=== PATIENT | female | born 1985 | race Hispanic/Latino ===

== ENCOUNTER 2020-04-16 03:32 | Emergency (ER) | payer OTHER ==
[2020-04-16 03:42] VITALS: BP 183/119
--- NOTE | 2020-04-16 04:18 | Emergency Department Report ---
ED ENT HPI - General Chief complaint: Dental/Oral Stated complaint: TOOTHACHE/FACIAL NUMBNESS Time Seen by Provider: 04/16/20 04:03 Source: patient Mode of arrival: Ambulatory Limitations: No Limitations - History of Present Illness MD complaint: tooth pain -: Gradual Location: tooth # Severity: mild, moderate Quality: dull Consistency: constant Improves with: none Worsens with: none Context- Dental: history of dental caries, poor dental care Associated Symptoms: toothache - Related Data Previous Rx's Medication Instructions Recorded Last Taken Type Ciprofloxacin HCl [Ciprofloxacin 500 mg PO Q12H #14 tab 06/30/18 Unknown Rx TAB] Clindamycin [Clindamycin CAP] 300 mg PO Q8H #21 cap 06/30/18 Unknown Rx HYDROcodone/ACETAMINOPHEN [[place] 1 each PO Q6H PRN #12 tablet 06/30/18 Unknown Rx 10-325 Tablet] Chlorhexidine Mouthwash [Peridex] 15 ml MM BID #1 bottle 04/16/20 Unknown Rx Clindamycin [Clindamycin CAP] 150 mg PO BID #14 capsule 04/16/20 Unknown Rx Ketorolac [Toradol] 10 mg PO Q6H PRN #15 tablet 04/16/20 Unknown Rx Lidocaine Viscous 2% 5 ml MM Q3H PRN #120 udc 04/16/20 Unknown Rx Allergies Allergy/AdvReac Type Severity Reaction Status Date / Time codeine Allergy Hives Verified 04/16/20 03:38 [From Tylenol-Codeine #3] Penicillins Allergy Nausea Verified 04/16/20 03:38 ED Dental HPI - General Chief complaint: Dental/Oral Stated complaint: TOOTHACHE/FACIAL NUMBNESS Time Seen by Provider: 04/16/20 04:03 Source: patient Mode of arrival: Ambulatory Limitations: No Limitations - Related Data Previous Rx's Medication Instructions Recorded Last Taken Type Ciprofloxacin HCl [Ciprofloxacin 500 mg PO Q12H #14 tab 06/30/18 Unknown Rx TAB] Clindamycin [Clindamycin CAP] 300 mg PO Q8H #21 cap 06/30/18 Unknown Rx HYDROcodone/ACETAMINOPHEN [[place] 1 each PO Q6H PRN #12 tablet 06/30/18 Unknown Rx 10-325 Tablet] Chlorhexidine Mouthwash [Peridex] 15 ml MM BID #1 bottle 04/16/20 Unknown Rx Clindamycin [Clindamycin CAP] 150 mg PO BID #14 capsule 04/16/20 Unknown Rx Ketorolac [Toradol] 10 mg PO Q6H PRN #15 tablet 04/16/20 Unknown Rx Lidocaine Viscous 2% 5 ml MM Q3H PRN #120 udc 04/16/20 Unknown Rx Allergies Allergy/AdvReac Type Severity Reaction Status Date / Time codeine Allergy Hives Verified 04/16/20 03:38 [From Tylenol-Codeine #3] Penicillins Allergy Nausea Verified 04/16/20 03:38 ED Review of Systems ROS: Stated complaint: TOOTHACHE/FACIAL NUMBNESS Other details as noted in HPI Comment: All other systems reviewed and negative ED Past Medical Hx - Past Medical History Previous Medical History?: No - Surgical History Hx Breast Surgery: Yes (augmentation) Additional Surgical History: , neck - Social History Smoking Status: Current Every Day Smoker Substance Use Type: None - Medications Home Medications: Home Medications Medication Instructions Recorded Confirmed Last Taken Type Ciprofloxacin HCl [Ciprofloxacin 500 mg PO Q12H #14 tab 06/30/18 Unknown Rx TAB] Clindamycin [Clindamycin CAP] 300 mg PO Q8H #21 cap 06/30/18 Unknown Rx HYDROcodone/ACETAMINOPHEN [[place] 1 each PO Q6H PRN #12 tablet 06/30/18 Unknown Rx 10-325 Tablet] Chlorhexidine Mouthwash [Peridex] 15 ml MM BID #1 bottle 04/16/20 Unknown Rx Clindamycin [Clindamycin CAP] 150 mg PO BID #14 capsule 04/16/20 Unknown Rx Ketorolac [Toradol] 10 mg PO Q6H PRN #15 tablet 04/16/20 Unknown Rx Lidocaine Viscous 2% 5 ml MM Q3H PRN #120 udc 04/16/20 Unknown Rx ED Physical Exam - General Limitations: No Limitations General appearance: alert, in no apparent distress - Head Head exam: Present: atraumatic, normocephalic - Eye Eye exam: Present: normal appearance, PERRL, EOMI Pupils: Present: normal accommodation - ENT ENT exam: Present: normal exam, normal orophraynx, mucous membranes moist, TM's normal bilaterally, other (Several dental caries diffusely eroded throughout the oral cavity. There is some adjacent erythema to the lower mandible region. No abscess is noted. No pustular discharge. Airway patent tongue and uvula mid line) - Neck Neck exam: Present: normal inspection, full ROM, lymphadenopathy - Respiratory Respiratory exam: Present: normal lung sounds bilaterally. Absent: respiratory distress, wheezes, rhonchi, chest wall tenderness, accessory muscle use, decreased breath sounds - Cardiovascular Cardiovascular Exam: Present: regular rate, normal rhythm. Absent: systolic murmur, diastolic murmur, rubs, gallop - GI/Abdominal GI/Abdominal exam: Present: soft, normal bowel sounds - Extremities Exam Extremities exam: Present: normal inspection - Back Exam Back exam: Present: normal inspection - Neurological Exam Neurological exam: Present: alert, oriented X3 - Psychiatric Psychiatric exam: Present: normal affect, normal mood - Skin Skin exam: Present: warm, dry, intact, normal color. Absent: rash ED Course Vital Signs 04/16/20 03:39 Temperature 98.3 F Pulse Rate 112 H Respiratory 20 Rate Blood Pressure 183/119 O2 Sat by Pulse 100 Oximetry Critical care attestation.: If time is entered above; I have spent that time in minutes in the direct care of this critically ill patient, excluding procedure time. ED Disposition Clinical Impression: Dentalgia, Dental caries Disposition: DC-01 TO HOME OR SELFCARE Is pt being admited?: No Does the pt Need Aspirin: No Condition: Stable Instructions: Toothache (ED), Dental Caries (ED) Referrals: PRIMARY CARE,MD [Primary Care Provider] - 3-5 Days
== END 2020-04-16 04:25 | disposition home or self-care (01) ==
LOC: ED 03:32
DX: K02.9 Dental caries, unspecified (principal); K08.89 Other specified disorders of teeth and supporting structures; F17.200 Nicotine dependence, unspecified, uncomplicated; Z79.899 Other long term (current) drug therapy; Z98.890 Other specified postprocedural states; Z88.0 Allergy status to penicillin; Z88.6 Allergy status to analgesic agent
CPT/HCPCS: 99282